=== PATIENT | female | born 1990 ===

== ENCOUNTER 2018-08-13 09:26 | Emergency (ER) | payer OTHER ==
[~2018-08-13] VITALS: Ht 152.4 cm; Wt 56.2 kg
== END 2018-08-13 13:32 | disposition home or self-care (01) ==
LOC: ER 09:26
DX: S40.022A Contusion of left upper arm, initial encounter (principal); S20.212A Contusion of left front wall of thorax, initial encounter; S20.211A Contusion of right front wall of thorax, initial encounter; S10.83XA Contusion of other specified part of neck, initial encounter; V49.9XXA Car occupant (driver) (passenger) injured in unspecified traffic accident, initial encounter; Y93.89 Activity, other specified; Y92.488 Other paved roadways as the place of occurrence of the external cause; Y99.8 Other external cause status